=== PATIENT | male | born 1985 | race Caucasian/White ===

== ENCOUNTER → 2021-06-04 09:45 | Outpatient (CLI) | payer OTHER, MEDICAID, SELFPAY ==
--- NOTE | 2021-06-04 09:48 | XR_ITS ---
PROCEDURE: XR SHOULDER LT MIN 2V CLINICAL INDICATION: left shoulder pain COMPARISON: No exams were available for comparison FINDINGS: No fracture or dislocation. No lytic or blastic change. There is normal mineralization. There is slight decrease in the joint space at the glenohumeral joint with some mild osteosclerosis of the articular surface of the glenoid suggesting mild osteoarthritic changes. Other findings:None. IMPRESSION: Mild osteoarthritic change glenohumeral joint Dictated by: Kal Rojas MD 06/04/2021 12:25 Kal Rojas MD in [facility] 06/04/2021 12:25
== END ==
PROVIDERS: PCP Family Medicine; Visit Provider Orthopaedic Surgery
DX: M25.512 Pain in left shoulder (principal)
CPT/HCPCS: 73030

== ENCOUNTER → 2021-06-27 13:10 | Outpatient (CLI) | payer OTHER, MEDICAID, SELFPAY ==
--- NOTE | 2021-06-27 13:10 | MR_ITS ---
PROCEDURE: MR SHOULDER LT W CON CLINICAL INDICATION: evaluate for LT shoulder rotator cuff tear Recurring dislocation, injury with pain COMPARISON: No exams were available for comparison TECHNIQUE: Routine multiplanar multi echo sequences are performed with intra-articular contrast. FINDINGS: There is no evidence of a complete rotator cuff tear. The supraspinatus tendon, infraspinatus tendon, subscapularis, and teres minor tendons are intact. Bicipital tendon is in place. There does appear to be a SLAP tear of the glenoid labrum. There was some contrast extravasation in the subscapularis region and subcoracoid region. No significant acromioclavicular hypertrophy. There is mild subacromial stenosis of 5 mm. Minimal cortical regularity involves the base of the greater tuberosity. No fracture or dislocation. IMPRESSION: Slap tear of the glenoid labrum otherwise negative MR arthrogram. Dictated by: Kal Rojas MD 07/01/2021 07:40 Kla Rojas MD in [facility] 07/01/2021 07:40
--- NOTE | 2021-06-27 13:10 | IR_ITS ---
PROCEDURE: IR ARTHROGRAM SHOULDER LT XR SHOULDER LT MIN 2V CLINICAL INDICATION: LT SHOULDER PAIN COMPARISON: CR XR SHOULDER LT MIN 2V from 06/04/2021 CR XR SHOULDER LT MIN 2V from 06/27/2021 RF IR ARTHROGRAM SHOULDER LT from 06/27/2021 FINDINGS: Following obtaining informed consent and time-out procedure using fluoroscopic guidance under aseptic conditions and local anesthesia with 1 percent buffered lidocaine, 20 gauge spinal needle was inserted into the shoulder joint via the anterior approach. A mixture of Isovue 300, gadolinium, and lidocaine was injected into the joint space under fluoroscopic guidance. The patient tolerated the procedure well without evidence of immediate complications. Images are obtained in external and internal rotation. The patient left the radiology suite in stable condition and went to MRI where MR arthrogram images were performed. Contrast injected easily into the shoulder joint. No evidence of adhesive capsulitis. Two-view shoulder obtained postexercise images show no evidence of localization of contrast into the subacromial region. No evidence of complete rotator cuff tear. IMPRESSION: Unremarkable left shoulder arthrogram. Please see MRI arthrogram report for further details Dictated by: Kal Rojas MD 07/01/2021 07:26 Kal Rojas MD in [facility] 07/01/2021 07:26
== END ==
PROVIDERS: PCP Family Medicine; Visit Provider Orthopaedic Surgery
DX: M25.512 Pain in left shoulder (principal)
CPT/HCPCS: 73030; 73040; 73222; Q9967